=== PATIENT | female | born 1965 | race Caucasian/White ===

== ENCOUNTER 2018-10-19 10:53 | Day surgery (SDC) | payer OTHER, MEDICAID ==
[~2018-10-19 10:53] MED LIST: CEFAZOLIN 2 GM/50 ML (PMX) 50 ML IVPB; SOD CHLORIDE 0.9% 1,000 ML IV
[2018-10-19] MEDS ORDERED: BUPIVACAINE 0.5%/EPI (SDV) 30 ML INJ (11:55)
[2018-10-19] MEDS ORDERED: PROCHLORPERAZINE 10 MG INJ IV (12:30)
[2018-10-19] MEDS ORDERED: ONDANSETRON 4 MG INJ IV ×2 (12:30→13:30)
[2018-10-19] MEDS: LIDOCAINE 1%/EPI 30 ML INJ INJ (12:30)
[2018-10-19] MEDS ORDERED: DIPHENHYDRAMINE 50 MG INJ IV (12:30)
[2018-10-19] MEDS ORDERED: FENTAnyl 50 MCG/ML VIAL IV (12:30)
[2018-10-19] MEDS ORDERED: OXYCODONE/ACETAMINOPHEN (5/325) TAB PO (12:30)
[2018-10-19] MEDS ORDERED: MEPERIDINE 25 MG INJ IV (12:30)
[2018-10-19] MEDS ORDERED: HYDROmorphONE 1 MG/5 ML IV SYRINGE IV (12:30)
[2018-10-19] MEDS: BUPIVACAINE 0.25% (STERILE-PAK) 30 ML INJ INJ (12:30)
[2018-10-19] MEDS ORDERED: BUPIVACAINE 0.25% (MPF) 30 ML INJ (12:40)
[2018-10-19] MEDS ORDERED: LIDOCAINE 1%/EPI 30 ML INJ (12:40)
[2018-10-19] MEDS ORDERED: PROPOFOL 20 ML (12:56)
[2018-10-19] MEDS ORDERED: LIDOCAINE 2% (SDV) 5 ML INJ (12:56)
[2018-10-19] MEDS ORDERED: MIDAZOLAM 1 MG/ML 2 ML INJ (12:56)
[2018-10-19] MEDS ORDERED: FENTAnyl 50 MCG/ML VIAL (13:00)
[2018-10-19] MEDS ORDERED: CEFAZOLIN 1 GM INJ (13:03)
[2018-10-19] MEDS ORDERED: EPHEDrine 50 MG INJ (13:15)
[2018-10-19] MEDS ORDERED: ONDANSETRON 4 MG INJ (13:21)
[2018-10-19] MEDS ORDERED: IBUPROFEN 600 MG TAB PO (13:30)
== END 2018-10-19 15:10 | disposition home or self-care (01) ==
LOC: SDS 10:53
DX: D17.22 Benign lipomatous neoplasm of skin and subcutaneous tissue of left arm (principal); D17.21 Benign lipomatous neoplasm of skin and subcutaneous tissue of right arm; E78.5 Hyperlipidemia, unspecified; E66.9 Obesity, unspecified; Z68.31 Body mass index [BMI] 31.0-31.9, adult
CPT/HCPCS: 11404; 88307